=== PATIENT | female | born 1990 | race Caucasian/White ===

== ENCOUNTER 2016-12-29 21:39 | Emergency (ER) | payer OTHER ==
[~2016-12-29] VITALS: Ht 172.7 cm; Wt 88.5 kg
--- NOTE | 2016-12-29 21:46 | NUR ---
Patient triaged and placed in waiting room. VSS and patient appears in no acute distress at this time. Accompanied by friend, awaiting available bed, and MD notified of need for MSE.
[2016-12-29 21:48] VITALS: BP_SYST 116
--- NOTE | 2016-12-29 22:41 | NUR ---
Patient to ER bed 2 to gown for evaluation. Side rails up. Report given to [place] SWAN.
--- NOTE | 2016-12-29 22:41 | NUR ---
Bed 4
--- NOTE | 2016-12-29 23:20 | NUR ---
Resting in bed. at bedside. states she had nausea and vomiting after coming back from travelling. she started having diarrhea and difficulty keeping down water.
--- NOTE | 2016-12-29 23:35 | NUR ---
ER at bedside examining patient.
[2016-12-29] MEDS ORDERED: NACL 0.9% 1,000 ML IV ONE (23:54)
[2016-12-30] MEDS ORDERED: ONDANSETRON HCL 4 MG/2 ML VIAL IVP ONE
[2016-12-30 00:38] LABS: BILIRUBIN,URINE 1+ (NEGATIVE); BLOOD, URINE NEGATIVE (NEGATIVE); CLARITY/URINE CLEAR (CLEAR); COLOR,URINE YELLOW (YELLOW); GLUCOSE,URINE 2+ (NEGATIVE); KETONES,URINE 3+ (NEGATIVE); LEUKOCYTE ESTERASE ,URINE NEGATIVE (NEGATIVE); NITRITE, URINE NEGATIVE (NEGATIVE); PH,URINE 5.5 (5.0-8.0); PROTEIN URINE NEGATIVE (NEGATIVE); UROBILINOGEN,URINE 0.2 (0.2-1.0)
[2016-12-30 00:47] LABS: BACTERIA,URINE FEW /HPF (None Seen); MUCUS,URINE None Seen /LPF (None Seen); RBC,URINE 0-3 /HPF (0-3); WBC,URINE 0-3 /HPF (0-3)
--- NOTE | 2016-12-30 01:00 | NUR ---
RESTING IN BED, STATES SHE FEELS A LOT BETTER.
[2016-12-30 01:07] LABS: BASOPHILS % (AUTO) 0.3 % (0.0-2.0); EOSINOPHILS % (AUTO) 0.1 % (0.0-4.0); HEMATOCRIT 37.3 % (36-48); HEMOGLOBIN 12.4 g/dL (12.0-16.0); LYMPHOCYTES # (AUTO) 0.6 K/uL (1.0-5.5); LYMPHOCYTES % (AUTO) 6.1 % (20.5-51.5); MEAN CORPUSCULAR HEMOGLOBIN 27 pg (27-31); MEAN CORPUSCULAR HGB CONC 33 % (32-36); MEAN CORPUSCULAR VOLUME 81 fL (79.0-98.0); MONOCYTES # (AUTO) 0.4 K/uL (0.0-1.0); MONOCYTES % (AUTO) 3.9 % (1.7-9.3); NEUTROPHILS # (AUTO) 8.6 K/uL (1.8-7.7); NEUTROPHILS % (AUTO) 89.6 % (40.0-70.0); PLATELET COUNT (AUTO) 231 K/uL (130-430); RED BLOOD CELL COUNT(AUTO) 4.62 MIL/uL (4.2-6.2); RED CELL DISTRIBUTION WIDTH 12.3 % (9.0-15.0); WHITE BLOOD COUNT (AUTO) 9.6 K/uL (4.8-10.8)
--- NOTE | 2016-12-30 01:10 | NUR ---
DR GONZALES AT BEDSIDE TALKING TO PT.
[2016-12-30 01:12] LABS: CALCIUM 8.3 mg/dL (8.4-11.0); CREATININE 0.92 mg/dL (0.55-1.30); POTASSIUM 4.1 mmol/L (3.5-5.1)
[2016-12-30 01:17] LABS: ALBUMIN 3.3 g/dL (3.4-4.8); TOTAL BILIRUBIN 0.6 mg/dL (0.0-1.0); TOTAL PROTEIN, SERUM 6.7 g/dL (6.4-8.3)
[2016-12-30] MEDS ORDERED: NACL 0.9% 1,000 ML IV ONE (01:17)
--- NOTE | 2016-12-30 01:25 | NUR ---
Dr Vivas ordered 1 more liter of NS , protonix 40mg ivp and pt may have some ice chips, implemented.
[2016-12-30] MEDS ORDERED: PANTOPRAZOLE SODIUM 40 MG/VIAL (PROTONIX) IVP ONE (01:30)
--- NOTE | 2016-12-30 02:40 | NUR ---
Patient given written and verbal discharge instructions and verbalizes understanding. ER MD Dr Vivas discussed with patient the results and treatment provided. Patient in stable condition. ID arm band removed. IV catheter removed intact and dressing applied, no active bleeding. Rx of zofran 4 mg q8h prn given. Patient educated on pain management and to follow up with PMD. Pain Scale . Opportunity for questions provided and answered.
[2016-12-30 03:52] VITALS: BP_SYST 120
== END 2016-12-30 02:40 | disposition home or self-care (01) ==
LOC: SED 21:39
DX: K52.9 Noninfective gastroenteritis and colitis, unspecified (principal); E11.9 Type 2 diabetes mellitus without complications; E86.0 Dehydration
CPT/HCPCS: 36415; 80053; 81000; 81025; 82962; 83690; 85025; 96361; 96374; 96375; 99284; C9113; J2405; J7030